=== PATIENT | female | born 1985 | race Two or more races ===

== ENCOUNTER 2018-07-02 23:01 | Emergency (ER) | payer MEDICAID ==
[2018-07-02 23:20] VITALS: BP 132/89
[2018-07-03] MEDS ORDERED: DEXAMETHASONE SOD PHOS INJ 10 MG/1 ML VIAL IM ONE (01:01)
[2018-07-03] MEDS ORDERED: FAMOTIDINE 20 MG TABLET PO ONE (01:02)
[2018-07-03] MEDS ORDERED: DIPHENHYDRAMINE HCL 50 MG CAPSULE PO ONE (01:02)
--- NOTE | 2018-07-03 01:08 | ER Document Report ---
HPI - HPI Time Seen by Provider: 07/03/18 00:55 Pain Level: 1 Context: Patient is a 33-year-old female who presents emergency department with a chief complaint of a rash. She states that she noticed the rash to her right elbow this morning. 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 The rash is pruritic. Denies any fever, nausea, vomiting, diarrhea shortness of breath, chest pain, abdominal pain, or difficulty breathing. Denies any sick contacts. Denies any past medical history. - CONSTITUTIONAL Constitutional: DENIES: Fever, Chills - EENT EENT: DENIES: Sore Throat - NEURO Neurology: DENIES: Headache - RESPIRATORY Respiratory: DENIES: Coughing - GASTROINTESTINAL Gastrointestinal: DENIES: Abdominal Pain - REPRODUCTIVE Reproductive: DENIES: : - MUSCULOSKELETAL Musculoskeletal: DENIES: Extremity pain - DERM Skin Color: Normal Skin Problems: Rash - All over body Past Medical History - Social History Smoking Status: Never Smoker Family History: Reviewed & Not Pertinent Patient has suicidal ideation: No Patient has homicidal ideation: No Renal/ Medical History: Denies: Hx Peritoneal Dialysis Past Surgical History: Reports: Hx Section - x3, Hx Tonsillectomy Vertical Provider Document - CONSTITUTIONAL Agree With Documented VS: Yes Exam Limitations: No Limitations, Physical Impairment General Appearance: No Apparent Distress - INFECTION CONTROL TRAVEL OUTSIDE OF THE [place] IN LAST 30 DAYS: No - HEENT HEENT: Atraumatic, Normocephalic, PERRLA. negative: Pharyngeal Exudate, Pharyngeal Tenderness, Pharyngeal Erythema - NECK Neck: Normal Inspection - RESPIRATORY Respiratory: Breath Sounds Normal, No Respiratory Distress - CARDIOVASCULAR Cardiovascular: Regular Rate, Regular Rhythm Pulses: Normal: Radial - GI/ABDOMEN Gastrointestinal: Abdomen Soft, Abdomen Non-Tender - BACK Back: Normal Inspection - MUSCULOSKELETAL/EXTREMETIES Musculoskeletal/Extremeties: FROM - NEURO Level of Consciousness: Awake, Alert, Appropriate Motor/Sensory: No Motor Deficit, No Sensory Deficit, No Pronator Drift - DERM Integumentary: Warm, Dry, Rash - Blanchable erythematous spots over body, primarily on dorsal aspect of arms Course - Re-evaluation Re-evalutation: 07/03/18 01:08 Patient's rash is blanchable. I do not suspect this is a large systemic infection. She will be given Pepcid, Benadryl, and Decadron to help with her symptoms. At the very low suspicion for scarlet fever, scabies, necrotizing fasciitis, or any life-threatening etiology at this time. She is to follow-up with her primary care provider. Verbal discharge instructions were given to the patient. They verbalized understanding. They are stable for discharge. - Vital Signs Vital signs: Temp Pulse Resp BP Pulse Ox 98.2 F 85 17 132/89 H 99 07/02/18 23:19 07/02/18 23:19 07/02/18 23:19 07/02/18 23:19 07/02/18 23:19 Discharge - Discharge Clinical Impression: Allergic reaction Qualifiers: Encounter type: initial encounter Qualified Code(s): T78.40XA - Allergy, unspecified, initial encounter Condition: Stable Disposition: HOME, SELF-CARE Additional Instructions: You were seen today in the emergency department for a rash. Your rash appears to be an allergic reaction. It is unsure as to what is causing your allergic reaction. You are treated here in the emergency department for a rash. Please follow-up with your primary care provider in regards to this visit.
== END 2018-07-03 01:19 | disposition home or self-care (01) ==
LOC: ER 23:01
DX: T78.40XA Allergy, unspecified, initial encounter (principal); R21 Rash and other nonspecific skin eruption; X58.XXXA Exposure to other specified factors, initial encounter
CPT/HCPCS: 99282; 96372; J3490 ×2; J1100